=== PATIENT | female | born 2000 | race Caucasian/White ===

== ENCOUNTER 2025-02-24 17:34 | Outpatient (CLI) | payer OTHER, SELFPAY | END 2025-02-24 17:35 | disposition home or self-care (01) | LOC: NFLDREF 02-27 09:29 | PROVIDERS: PCP Family Medicine; Referring Provider Family Medicine; Visit Provider Family Medicine | DX: I10 Essential (primary) hypertension (principal); F32.A Depression, unspecified; G43.109 Migraine with aura, not intractable, without status migrainosus; J45.990 Exercise induced bronchospasm; Z13.6 Encounter for screening for cardiovascular disorders | CPT/HCPCS: 80053; 80061; 82043; 82570 ==